=== PATIENT | male | born 1955 | race Caucasian/White ===

== ENCOUNTER 2016-05-23 09:01 | Day surgery (SDC) | payer OTHER ==
[2016-05-23] MEDS ORDERED: LACTATED RINGERS 1,000 ML ONE (09:31)
[2016-05-23] MEDS ORDERED: IV START KIT ONE (09:31)
[2016-05-23] MEDS ORDERED: LIDOCAINE 2% (PRES FREE) 5 ML VIAL ONE (10:09)
[2016-05-23] MEDS ORDERED: PROPOFOL 40 ML IV ONE (10:09)
[2016-05-23] MEDS ORDERED: LIDOCAINE 1% 2 ML VIAL ID PRN (11:52)
[2016-05-23] MEDS ORDERED: ONDANSETRON 4 MG/2ML 2 ML VIAL IV PRN (11:52)
[2016-05-23] MEDS ORDERED: LACTATED RINGERS 1,000 ML IV SCH (11:52)
--- NOTE | 2016-05-30 13:48 | SURGPATH ---
[facility] [address] [place] [id number] Patient Name: MIKO MOCTEZUMA MR#: [id number] : 1955 Gender: M Specimen #: [id number] Collected: 05/23/2016 Received: 05/29/2016 Reported: 05/30/2016 Submitting Phys: TERRELL GANDHI Copy To Phys: NAA URIBE [facility] Clinical History / Pre-Operative Diagnosis: PERSONAL HISTORY OF COLON POLYPS Specimen Source / Surgical Procedure Performed: QUESTIONABLE COLON POLYP AT HEPATIC FLEXURE Interpretation: COLON, HEPATIC FLEXURE, BIOPSY: - TUBULAR ADENOMA. - NO EVIDENCE OF MALIGNANCY. Electronically Signed Out Padilla Monzon M.D., Ph.D. Gross Description: The specimen is received in a formalin filled container labeled with the patient's name and "questionable colon polyp at hepatic flexure". A single wade biopsy is 0.3 cm. Totally embedded in one cassette. Bimal Ramirez, P.A. Microscopic Description: Examination of multiple levels from the colon biopsy at the hepatic flexure shows a single fragment of colonic mucosa with adenomatous changes within glands and tubules. There is no evidence of malignancy. 1: [id number] D12.3
== END 2016-05-23 13:00 | disposition home or self-care (01) ==
LOC: SDC 09:01
PROVIDERS: ATTEND Surgery
PROC: 0DBL8ZX Excision of Transverse Colon, Via Natural or Artificial Opening Endoscopic, Diagnostic (ICD-10-PCS; principal; 2016-05-23)
DX: Z12.11 Encounter for screening for malignant neoplasm of colon (principal); D12.3 Benign neoplasm of transverse colon; K64.0 First degree hemorrhoids; K64.4 Residual hemorrhoidal skin tags; Z86.010 Personal history of colon polyps; I10 Essential (primary) hypertension; E78.00 Pure hypercholesterolemia, unspecified; I25.2 Old myocardial infarction; Z95.1 Presence of aortocoronary bypass graft; Z85.828 Personal history of other malignant neoplasm of skin; Z79.82 Long term (current) use of aspirin
CPT/HCPCS: 45380; J7120